=== PATIENT | male | born 1995 | race Caucasian/White ===

== ENCOUNTER 2020-03-19 23:09 | Emergency (ER) | payer SELFPAY ==
[2020-03-19 23:09] VITALS: BP 152/86; PULSE 96; RESP 17; TEMP 36.8; O2SAT 100; BMI 18.6
--- NOTE | 2020-03-19 23:14 | XR_ITS ---
PROCEDURE: XR CHEST 2V CLINICAL HISTORY: chest pain Lower chest pain COMPARISON: No exams were available for comparison FINDINGS: The cardiomediastinal silhouette and pulmonary vascularity are within normal limits. The lungs are clear without infiltrates, suspicious nodules, or pleural effusions. No acute bony abnormalities. IMPRESSION: No acute findings. Dictated by: Topher Rico MD 03/20/2020 05:29 Topher Rico MD in [facility] 03/20/2020 05:29
--- NOTE | 2020-03-19 23:15 | ECG_ITS ---
APPROVED REPORT Exam: Resting ECG HR:91 bpm ECG Measurements Heart Rate 91 AXES [place] 154 P 79 QRSd 112 QRS 78 QT 352 T 76 QTc 432 Conclusion Normal sinus rhythm Possible Left atrial enlargement Incomplete right bundle branch block Abnormal ECG Electronically signed by : Bo Grace, 03/20/2020 09:23:06
[2020-03-19 23:30] LABS: Microscopic, Urine URINE MICROSCOPIC (MICROSCOPIC)
--- NOTE | 2020-03-19 23:30 | [facility].EDCP ---
ED Disposition Clinical Impression: Atypical chest pain Disposition: Home, Self-Care Condition on Discharge: Good Instructions: DI for Atypical Chest Pain Additional Instructions: see pcp for follow up Referrals: PCP,No [Primary Care Provider] - - Critical Care Critical Care Time: No Attestation: On , the high probability of a clinically significant, sudden or life threatening deterioration of the following system(s) required my full and direct attention, intervention and personal management. The time I documented below is in addition to time spent performing reported procedures but includes the following listed in this critical care notation. Medical Decision Making - Medical Records Medical records reviewed: Yes: I reviewed the patient's medical records. - Champ Inquiry Pt receiving controlled substance: No Vital Signs: 03/19/20 23:09 03/19/20 23:38 03/20/20 01:16 Temperature 98.2 F Temperature Source Oral Pulse Rate [Right Brachial] 96 H 95 H 89 Respiratory Rate 17 15 Blood Pressure [Right Arm] 152/86 H 128/94 H 123/78 Blood Pressure Mean [Right Arm] 108 105 93 Blood Pressure Source [Right Arm] Automatic Cuff Automatic Cuff Automatic Cuff Blood Pressure Position [Right Arm] Sitting Sitting Sitting 02 Sat by Pulse Oximetry 100 98 98 Oxygen Delivery Method Room Air Room Air Room Air 03/20/20 01:40 03/20/20 01:41 Temperature Temperature Source Pulse Rate [Right Brachial] 76 70 Respiratory Rate 14 Blood Pressure [Right Arm] 118/73 118/73 Blood Pressure Mean [Right Arm] 88 88 Blood Pressure Source [Right Arm] Automatic Cuff Automatic Cuff Blood Pressure Position [Right Arm] Sitting 02 Sat by Pulse Oximetry 100 98 Oxygen Delivery Method Room Air Room Air - Lab Data Lab results reviewed: Yes: I reviewed the patient's lab results. Lab Results 03/19/20 23:15: Urine Color Yellow, Urine Appearance Sl cloudy, Urine pH 7.0, Ur Specific Strum 1.025, Urine Protein Negative, Urine Glucose (UA) Negative, Urine Ketones Negative, Urine Blood Negative, Urine Nitrate Negative, Urine Bilirubin Negative, Urine Urobilinogen 1.0, Ur Leukocyte Esterase Negative, Amorphous Sediment 4+ 03/19/20 23:15: WBC 9.5, RBC 5.28, Hgb 15.1, Hct 47.1, MCV 89.1, MCH 28.7, MCHC 32.2, RDW 13.0, Plt Count 182, MPV 7.4, Neut % (Auto) 69.6, Lymph % (Auto) 22.8, [place] % (Auto) 4.6, Eos % (Auto) 2.5, Baso % (Auto) 0.5, Neut # (Auto) 6.6, Lymph # (Auto) 2.2, [place] # (Auto) 0.4, Eos # (Auto) 0.2, Baso # (Auto) 0.0 03/19/20 23:15: Sodium 142, Potassium 3.5, Chloride 104, Carbon Dioxide 29, Anion Gap 12.5, BUN 12, Creatinine 0.90, Estimated Creat Clear 120, Estimated GFR 106, Est GFR ( Amer) 128, Glucose 128 H, Calcium 9.8, Troponin I < 0.01 03/19/20 23:15: Urine Opiates Screen Negative, Urine Methadone Screen Negative, Ur Barbituates Screen Negative, Ur Phencyclidine Scrn Negative, Ur Amphetamines Screen Negative, U Benzodiazepines Scrn Negative, Urine Cocaine Screen Negative, U Marijuana (THC) Screen Negative 03/19/20 23:15: Amylase 86, Lipase 50 Result diagrams: 03/19/20 23:15 03/19/20 23:15 Orders (Tests/Meds): ED MEDICATIONS Generic Name Dose Route Start Last Admin Trade Name Freq PRN Reason Stop Dose Admin Sodium Chloride 1,000 mls @ 999 mls/hr 03/19/20 23:45 03/19/20 23:50 Sod Chlor 0.9% 1000ml Bag IV 03/20/20 00:45 999 mls/hr .Q1H1M CARLOS Administration Sodium Chloride 8 ml 03/19/20 23:36 Sodium Chloride 0.9% 10ml Vial IV 04/18/20 23:35 NEEDED PRN dilute pepcid Discontinued Medications Generic Name Dose Route Start Last Admin Trade Name Freq PRN Reason Stop Dose Admin Diatrizoate Meglum/Diatrizoate Sod 30 ml 03/19/20 23:30 03/19/20 23:53 Diatrizoate [place] 66% & Diatrizoate Na 10% 30ml Udc PO 03/19/20 23:31 30 ml ONCE ONE Administration Famotidine 20 mg 03/19/20 23:36 03/20/20 00:35 Famotidine 20mg/2ml Vial IV 03/19/20 23:37 20 mg ONCE ONE Administrat
[2020-03-19 23:32] LABS: Basophils % 0.5 % (0.1-2.0); Eosinophils # 0.2 K/mm3 (0.0-0.4); Eosinophils % 2.5 % (0.1-12.0); Hematocrit 47.1 % (42.0-52.0); Hemoglobin 15.1 g/dL (14.1-18.0); Lymphocytes # 2.2 K/mm3 (0.7-4.5); Lymphocytes % 22.8 % (10-50); Mean Corpuscular HGB Conc 32.2 g/dL (31.8-35.4); Mean Corpuscular Hemoglobin 28.7 pg (27.0-31.2); Mean Corpuscular Volume 89.1 fl (80-94); Mean Platelet Volume 7.4 fl (7.4-10.4); Monocytes # 0.4 K/mm3 (0.1-1.0); Monocytes % 4.6 % (1.7-9.3); Neutrophils # 6.6 K/mm3 (1.8-7.8); Neutrophils % 69.6 % (37.0-80.0); Platelet Count 182 K/mm3 (142-424); Red Blood Count 5.28 M/mm3 (4.60-6.20); White Blood Count 9.5 K/mm3 (4.8-10.8)
[2020-03-19 23:34] LABS: Appearance,Urine SL CLOUDY (Clear); Bilirubin,Urine Negative (Negative); Blood, Urine Negative (Negative); Color,Urine YELLOW (Yellow); Glucose,Urine (UA) Negative (Negative); Ketones,Urine Negative (Negative); Leukocyte Esterase,Urine Negative (Negative); Nitrate,Urine Negative (Negative); Protein,Urine Negative (Negative); Specific Gravity, Urine 1.025 (1.005-1.030)
[2020-03-19 23:36] LABS: Amorphous Sediment,Urine 4+ /lpf
[2020-03-19 23:38] VITALS: BP 128/94; PULSE 95; RESP 15; O2SAT 98
[2020-03-19 23:42] LABS: Anion Gap 12.5 mEq/L (5-15); Blood Urea Nitrogen 12 mg/dl (9-20); Calcium 9.8 mg/dl (8.4-10.2); Carbon Dioxide 29 mmol/L (22.0-30.0); Chloride 104 mmol/L (98-107); Creatinine Clearance Estimated 120 mL/min (50-200); Estimated Glomerular Filt Rate 106 ml/min (>60); GFR (African American) 128 ML/MIN (>60); Glucose 128 mg/dl (74-100); Potassium 3.5 mmoL/L (3.5-5.1); Sodium 142 mmol/L (136-145)
[2020-03-19 23:44] LABS: Amylase 86 U/L (30-110); Lipase 50 U/L (23-300)
[2020-03-19 23:45] LABS: Barbiturates Screen,Urine Negative ng/ml (<200); Benzodiazepines Screen,Urine Negative ng/ml (<200)
[2020-03-19 23:46] LABS: Amphetamine/Metha Screen,Urine Negative ng/ml (<1000)
[2020-03-19 23:47] LABS: Cannabinoid Screen,Urine Negative ng/ml (<50); Cocaine Screen,Urine Negative ng/ml (<300)
[2020-03-19 23:48] LABS: Methadone Screen,Urine Negative ng/ml (<300)
[2020-03-19 23:49] LABS: Opiate Screen,Urine Negative ng/ml (<300); Phencyclidine Screen,Urine Negative ng/ml (<25)
--- NOTE | 2020-03-19 23:52 | PC.NURSE ---
Patient finished PO contrast at this time
[2020-03-19 23:56] LABS: Troponin I < 0.01 ng/ml (0.00-0.034)
--- NOTE | 2020-03-20 00:01 | CT_ITS ---
PROCEDURE: CT ABDOMEN PELVIS W CON CLINICAL INDICATION: belly pain Epigastric pain COMPARISON: No exams were available for comparison TECHNIQUE: IV Contrast: 75ML OPTIRAY 350 Oral Contrast None Axial images obtained with sagittal and coronal reformats. All CT scans at the facility use one or more dose reduction, viz: automated exposure control, ma/kV adjustment per patient size (including targeted exams where dose is matched to indication, i.e. head), or iterative reconstruction technique. FINDINGS: LOWER THORAX: No acute finding ABDOMEN & PELVIS: The liver, adrenal glands, pancreas, and kidneys have an unremarkable appearance. There is borderline splenomegaly at 13 cm. No renal or ureteral calculi. No hydronephrosis. No evidence of appendicitis intestinal obstruction free air or diverticulitis. No pelvic mass or abnormal fluid collection. No acute bony anomalies. IMPRESSION: No acute finding Borderline splenomegaly Dictated by: Topher Rico MD 03/20/2020 05:35 Topher Rico MD in [facility] 03/20/2020 05:35
[2020-03-20 01:16] VITALS: BP 123/78; PULSE 89; O2SAT 98
--- NOTE | 2020-03-20 01:16 | PC.NURSE ---
Patient gone to CT at this time
--- NOTE | 2020-03-20 01:39 | PC.NURSE ---
pt return from ct at this time. no acute distress obs. no complaints voiced.
[2020-03-20 01:40] VITALS: BP 118/73; PULSE 76; RESP 14; O2SAT 100
[2020-03-20 01:41] VITALS: BP 118/73; PULSE 70; O2SAT 98
[2020-03-20 02:13] VITALS: BP 119/74; PULSE 65; RESP 15; TEMP 36.8; O2SAT 98
== END 2020-03-20 02:22 | disposition home or self-care (01) ==
PROVIDERS: Emergency Provider Emergency Medicine
DX: R07.89 Other chest pain (principal); F17.210 Nicotine dependence, cigarettes, uncomplicated
CPT/HCPCS: 71046; 74177; 80048; 80305; 81001; 82150; 83690; 84484; 85025; 93005; 96365; 96375; 99284; Q9967